=== PATIENT | male | born 1980 | race Caucasian/White ===

== ENCOUNTER 2016-07-31 10:45 | Emergency (ER) | payer OTHER ==
[~2016-07-31] VITALS: Ht 175.3 cm; Wt 104.3 kg
[2016-07-31] MEDS ORDERED: CLON1TAB PO (10:54)
[2016-07-31] MEDS ORDERED: NAPR500T PO (10:58)
--- NOTE | 2016-07-31 10:59 | ED Hip Pain/Injury ---
General Chief Complaint: Hip/Pelvic Problems Stated Complaint: RIGHT HIP PAIN Nursing Triage Note: R hip pain x 1 year, denies being evaluated by PCP or taking anything for pain. denies injury Source: patient Exam Limitations: no limitations History of Present Illness Time seen by provider: 10:55 Initial Comments To ER with right hip pain worse with any movement for one year, that would be 365 days. It's worse this morning. He has not sought care for this nor has he taken awwm-[id number] Tylenol or Motrin for this. He will also need a work note. No injury. No fevers or chills. Movement of the leg makes the pain at the hip worse. Timing/Duration: constant Severity: moderate Location: hip (R) Allergies and Home Medications Allergies Coded Allergies: No Known Drug Allergies (Unverified , 01/28/10) Home Medications Clonazepam 1 Mg Tablet, 1 MG PO BID PRN for ANXIETY, (Reported) Naproxen 500 Mg Tablet, 500 MG PO BID PRN for PAIN, #20 Prescribed by: BRUNO JAY on 07/31/16 1058 Constitutional: see HPI, No chills, No fever EENTM: see HPI Respiratory: no symptoms reported Cardiovascular: no symptoms reported Genitourinary: no symptoms reported Musculoskeletal: see HPI Skin: no symptoms reported Psychiatric/Neurological: No Symptoms Reported Past Wmwfyhj-Dfduib-Uvsoek Hx Patient Social History Alcohol Use: Regular Use Recreational Drug Use: No Smoking Status: Current Everyday Smoker Type Used: Cigarettes Recent Foreign Travel: No Contact w/Someone Who Travel: No Recent Infectious Disease Expo: No Recent Hopitalizations: No Surgeries HX Surgeries: No Respiratory Hx Respiratory Disorders: No Cardiovascular Hx Cardiac Disorders: No Neurological Hx Neurological Disorders: No Reproductive System Hx Reproductive Disorders: No Sexually Transmitted Disease: No Genitourinary Hx Genitourinary Disorders: No Gastrointestinal Hx Gastrointestinal Disorders: No Musculoskeletal Hx Musculoskeletal Disorders: No Endocrine Hx Endocrine Disorders: No HEENT HX ENT Disorders: No Cancer Hx Cancer: No Psychosocial Hx Psychiatric Problems: Yes Behavioral Health Disorders: Anxiety Integumentary HX Skin/Integumentary Disorder: No Blood Transfusions Hx Blood Disorders: No Physical Exam Vital Signs Vital Sign - Last 12Hours 07/31/16 10:51 Temp 98.2 Pulse 94 Resp 18 B/P (MAP) 134/92 Pulse Ox 95 Capillary Refill : Less Than 3 Seconds General Appearance: No Apparent Distress, WD/WN HEENT: PERRL/EOMI, TMs Normal Neck: Full Range of Motion, Normal Inspection Respiratory: No Accessory Muscle Use, No Respiratory Distress Gastrointestinal: Normal Bowel Sounds, Non Tender, Soft Extremity: Normal Capillary Refill, Normal Inspection Neurologic/Psychiatric: Alert, Oriented x3, No Motor/Sensory Deficits Skin: Normal Color, Warm/Dry Progress/Results/Core Measures Results/Orders My Orders Orders - BRUNO JAY APRN Hip, Right, 2 Views (07/31/16 10:55) Ketorolac Injection (Toradol Injection) (07/31/16 11:00) Orphenadrine Injection (Norflex Injectio (07/31/16 11:00) Medications Given in ED Current Medications Medications Dose Ordered Sig/Syed Route Start Time Stop Time Status Last Admin Dose Admin Ketorolac Tromethamine 60 mg ONCE ONCE IM 07/31/16 11:00 07/31/16 11:01 DC 07/31/16 10:59 60 MG Orphenadrine Citrate 60 mg ONCE ONCE IM 07/31/16 11:00 07/31/16 11:01 DC 07/31/16 10:59 60 MG Vital Signs/I&O Vital Sign - Last 12Hours 07/31/16 10:51 Temp 98.2 Pulse 94 Resp 18 B/P (MAP) 134/92 Pulse Ox 95 Blood Pressure Mean: 106 Departure Impression Impression: Primary Impression: Hip pain Qualified Codes: M25.551 - Pain in right hip Disposition: 01 HOME, SELF-CARE Condition: Stable Departure-Patient Inst. Decision time for Depature: 10:57 Referrals: NO,LOCAL PHYSICIAN (PCP/Family) Primary Care Physician Patient Instructions: Hip Pain Add. Discharge Instructions: 1. Return to ER for any concerns 2. Follow-up with your regular doctor this week to discuss obtaining an MRI of the hip for further evaluation All discharge instructions reviewed with patient and/or family. Voiced understanding. Scripts Naproxen (Naprosyn) 500 Mg Tablet 500 MG PO BID Y for PAIN, #20 TAB Prov: BRUNO JAY APRN 07/31/16 Work/School Note: Work Release Form Date Seen in the Emergency Department: Jul 31, 2016 Return to Work: Aug 01, 2016 Restrictions: No Restrictions BRUNO JAY APRN Jul 31, 2016 10:59
[2016-07-31] MEDS ORDERED: ORPHENADRINE 60 MG/2 ML (NORFLEX) AMP IM ONE (11:00)
[2016-07-31] MEDS ORDERED: KETOROLAC 60 MG/2 ML VIAL IM ONE (11:00)
[2016-07-31 11:45] VITALS: BP 134/92
--- NOTE | 2016-07-31 12:12 | Diagnostic Imaging Report ---
INDICATION: Worsening right hip pain. AP and frog-leg view of the right hip reveal mild marginal spurring along the lateral acetabulum. No fracture or malalignment is identified. There is no abnormal lytic or sclerotic focus. IMPRESSION: Mild lateral acetabular spurring without evidence of acute abnormality. Dictated by: Dictated on workstation # [id number]
== END 2016-07-31 11:45 | disposition home or self-care (01) ==
LOC: EDUNIT# 10:45 → ER 10:48
DX: M25.551 Pain in right hip (principal); F17.210 Nicotine dependence, cigarettes, uncomplicated
CPT/HCPCS: 73502; 96372; 99283